=== PATIENT | male | born 1995 | race Hispanic/Latino ===

== ENCOUNTER 2017-09-19 22:10 | Emergency (ER) | payer OTHER | END 2017-09-19 23:14 | disposition home or self-care (01) | LOC: EDH 22:10 | DX: S80.862A Insect bite (nonvenomous), left lower leg, initial encounter (principal); W57.XXXA Bitten or stung by nonvenomous insect and other nonvenomous arthropods, initial encounter; J45.909 Unspecified asthma, uncomplicated; Z79.899 Other long term (current) drug therapy; Y93.89 Activity, other specified; Y92.89 Other specified places as the place of occurrence of the external cause; Y99.8 Other external cause status ==

== ENCOUNTER 2017-11-05 12:54 | Emergency (ER) | payer OTHER | END 2017-11-05 14:17 | disposition home or self-care (01) | LOC: EDH 12:54 | DX: J45.21 Mild intermittent asthma with (acute) exacerbation (principal); Z79.899 Other long term (current) drug therapy ==

== ENCOUNTER 2018-09-14 15:31 | Emergency (ER) | payer OTHER ==
[2018-09-14] MEDS ORDERED: CYCLOBENZAPRINE HCL 10 MG TABLET ONE (16:32)
[2018-09-14] MEDS ORDERED: KETOROLAC TROMETHAMINE 60 MG/2 ML VIAL ONE (16:32)
[2018-09-14] MEDS ORDERED: FAMOTIDINE 20MG TAB 20 MG TAB ONE (16:32)
[2018-09-14] MEDS ORDERED: DIPHENHYDRAMINE HCL 25 MG CAPSULE ONE (16:33)
== END 2018-09-14 17:42 | disposition home or self-care (01) ==
LOC: EDH 15:31
DX: M54.16 Radiculopathy, lumbar region (principal); L30.8 Other specified dermatitis; J45.909 Unspecified asthma, uncomplicated
CPT/HCPCS: 96372; 99284; J1885; Q0163

== ENCOUNTER 2019-07-25 23:40 | Emergency (ER) | payer OTHER ==
[2019-07-26] MEDS ORDERED: DIPHENHYDRAMINE HCL 25 MG CAPSULE ONE (00:05)
== END 2019-07-26 01:05 | disposition home or self-care (01) ==
LOC: EDH 23:40
DX: S63.690A Other sprain of right index finger, initial encounter (principal); J45.909 Unspecified asthma, uncomplicated; X58.XXXA Exposure to other specified factors, initial encounter; Y93.89 Activity, other specified; Y92.89 Other specified places as the place of occurrence of the external cause; Y99.8 Other external cause status
CPT/HCPCS: 73130; 99284; Q0163